=== PATIENT | male | born 1970 | race Caucasian/White ===

== ENCOUNTER 2021-08-13 01:51 | Emergency (ER) | payer OTHER ==
[~2021-08-13] VITALS: Ht 172.7 cm; Wt 80.7 kg
[2021-08-13] MEDS ORDERED: AZITHROMYCIN 2250 MG PO ×2 (02:32→10:34)
[2021-08-13 02:37] VITALS: BP 120/60
== END 2021-08-13 02:37 | disposition home or self-care (01) ==
LOC: ER 01:51
DX: I88.9 Nonspecific lymphadenitis, unspecified (principal); I10 Essential (primary) hypertension; E10.9 Type 1 diabetes mellitus without complications; G47.30 Sleep apnea, unspecified